=== PATIENT | male | born 2000 | race African-American/Black ===

== ENCOUNTER 2022-12-22 13:16 | Emergency (ER) | payer MEDICAID ==
[~2022-12-22] VITALS: Ht 182.9 cm; Wt 77.0 kg
[2022-12-22 13:23] VITALS: BP 133/71
[2022-12-22] MEDS ORDERED: TOPIRAMATE 25MG TABLET PO STA (14:12)
[2022-12-22] MEDS ORDERED: LEVETIRACETAM 500MG TABLET PO ONE (14:15)
[2022-12-22] MEDS ORDERED: VALPROIC ACID 250MG CAPSULE PO ONE (14:15)
[2022-12-22] MEDS ORDERED: KEPP500 MT (14:33)
[2022-12-22] MEDS ORDERED: DIVA250T4 MT (14:33)
[2022-12-22] MEDS ORDERED: TOPA25 MT (14:33)
== END 2022-12-22 15:29 | disposition left against medical advice (07) ==
LOC: ER 13:16
DX: G40.909 Epilepsy, unspecified, not intractable, without status epilepticus (principal); Z59.00 Homelessness unspecified
CPT/HCPCS: 99283